=== PATIENT | female | born 1995 | race African-American/Black ===

== ENCOUNTER 2025-09-29 02:12 | Emergency (ER) | payer MEDICAID ==
[~2025-09-29] VITALS: Ht 152.4 cm; Wt 72.6 kg
[2025-09-29] MEDS ORDERED: SUCRALFATE 1 G/10 ML UDC ONE (03:41)
[2025-09-29] MEDS ORDERED: PANTOPRAZOLE 40 MG VIAL ONE (03:41)
[2025-09-29] MEDS ORDERED: FAMOTIDINE/PF INJ 20 MG/2 ML VIAL IV ONE (03:42)
[2025-09-29 03:51] LABS: PLATELET COUNT (AUTO) 352 K/uL (150-450); RED BLOOD CELL COUNT(AUTO) 4.67 MIL/uL (4.0-5.2); RED CELL DISTRIBUTION WIDTH 12.9 % (11.5-15.0); WHITE BLOOD COUNT (AUTO) 8.2 K/uL (4.3-11.0)
[2025-09-29] MEDS: FAMOTIDINE/PF INJ 20 MG/2 ML VIAL IV ONE (03:59)
[2025-09-29] MEDS: PANTOPRAZOLE 40 MG VIAL IV ONE (03:59)
[2025-09-29] MEDS: SUCRALFATE 1 G/10 ML UDC PO ONE (03:59)
[2025-09-29 04:02] LABS: CALCIUM, SERUM 8.8 mg/dL (8.5-10.1); CREATININE 0.8 mg/dL (0.6-1.3); SODIUM SERUM 139.0 mmol/L (136-145); UREA NITROGEN, BLOOD 9.0 mg/dL (7-18)
[2025-09-29 04:07] LABS: ASPARTATE AMINOTRANSFERASE 13.0 U/L (15-37); TOTAL PROTEIN, SERUM 7.2 g/dL (6.4-8.2)
[2025-09-29] MEDS ORDERED: FAMO20TA80 PO (04:12)
[2025-09-29] MEDS ORDERED: SUCR1TAB31 PO (04:12)
[2025-09-29] MEDS ORDERED: PANT40TA49 PO (04:12)
[2025-09-29 04:40] LABS: EOSINOPHILS % (MANUAL) 26 % (0-4); LYMPHOCYTES % (MANUAL) 36 % (16-48); MONOCYTES % (MANUAL) 3 % (0-11.0); NEUTROPHILS % (MANUAL) 35 (42-76); PLATELET ESTIMATE ADEQUATE
[2025-09-29 05:54] VITALS: BP 128/65; TEMP 98; O2SAT 97
== END 2025-09-29 05:56 | disposition home or self-care (01) ==
LOC: ER 02:22
DX: K29.70 Gastritis, unspecified, without bleeding (principal)
CPT/HCPCS: 99284; 96374; 96375; 85027; 83690; 85007; 36415; 80053; J1308; J7030; J2470; A4223